=== PATIENT | female | born 1955 | race Caucasian/White ===

== ENCOUNTER 2021-03-16 12:38 | Outpatient (RCR) | payer MEDICARE, SELFPAY ==
[2021-03-16] MEDS: ACETAMINOPHEN 325 MG TABLET 650 MG PO (13:00)
[2021-03-16] MEDS: FAMOTIDINE 20 MG TABLET PO (13:00)
[2021-03-16] MEDS: diphenhydrAMINE HCl CAP 25 MG CAPSULE PO (13:00)
[2021-03-16 13:10] VITALS: BP 149/88; PULSE 71; RESP 20; TEMP 36.7; O2SAT 99
[2021-03-16 14:42] VITALS: BP 141/81
--- NOTE | 2021-03-17 14:44 | PC.NURSE ---
follow up call for covid antibody infusion. Patient feels a little better today, still nauseas but able to keep food down. Advised her to contact primary care if symptoms persist.
== END 2021-03-16 14:30 | disposition home or self-care (01) ==
LOC: AMCINF 12:38
PROVIDERS: PCP Physician Assistant Medical; Referring Provider Physician Assistant Medical; Visit Provider Internal Medicine Hematology & Oncology
DX: Z23 Encounter for immunization (principal); U07.1 COVID-19; M06.9 Rheumatoid arthritis, unspecified
CPT/HCPCS: A9270; J7050; M0243; Q0243

== ENCOUNTER 2022-04-05 11:57 | Outpatient (CLI) | payer MEDICARE, SELFPAY ==
--- NOTE | ~2022-04-05 | DEXA_ITS ---
Bone Density Report Name: CHEMA ONEAL Age: 67 Sex: Female Ethnicity: White Date of : 1955 Indication: postmenopausal; screening for osteoporosis; height loss; history of glucocorticoids; hysterectomy; rheumatoid arthritis; Referring Provider: MONIQUE RDZ Study: Bone densitometry was performed. Exam Date: April 05, 2022 Accession number: [id number] Bone Density: Region BMD T-score Z-score Classification AP Spine(L1-L4) 0.813 -2.1 -0.3 Osteopenia Femoral Neck (Left) 0.592 -2.3 -0.7 Osteopenia Total Hip (Left) 0.796 -1.2 0.1 Osteopenia Femoral Neck (Right) 0.633 -2.0 -0.4 Osteopenia Total Hip (Right) 0.762 -1.5 -0.2 Osteopenia Total Hip Mean 0.779 -1.4 -0.1 Osteopenia World Health Organization criteria for BMD impression classify patients as: Normal (T-score at or above -1.0), Osteopenia (T-score between -1.0 and -2.5), or Osteoporosis (T-score at or below -2.5). 10-year Fracture Risk: FRAX not reported because: Treated for osteoporosis Clinical Information Provided by Patient: Has taken Glucocorticoids Has rheumatoid arthritis Is being treated for osteoporosis Has used the following medications: Prolia (i.e. denosumab), Vitamin D, Calcium Has the following medical conditions: Hysterectomy, lupus, RA Patient maximum height was 65 Menopause Age: 44 No regular weight bearing exercise Onset of menses at age 15 Number of children 4 Impression: The patient has low bone mass, based on the Left Femoral Neck T-score. The patient has risk factors, including: history of glucocorticoid therapy. Discussion: It is important to ask patients whether they are taking their medications and to encourage continued and appropriate compliance with their osteoporosis therapies to reduce fracture risk. It is also important to review their risk factors and encourage appropriate calcium and vitamin D intakes, exercise, fall prevention and other lifestyle measures. Follow-Up: Consider a repeat BMD and Vertebral Fracture Assessment (VFA) exam in 2 years or sooner if medically necessary, to reassess this patient's status. Reported by: CHIDI on 04/05/2022 12:26:00 PM. Reviewed, dictated and finalized at location [facility] ESTEBAN
== END 2022-04-05 11:58 | disposition home or self-care (01) ==
LOC: ANHIMG 11:57
PROVIDERS: PCP Family Medicine; Visit Provider Family Medicine
DX: M85.88 Other specified disorders of bone density and structure, other site (principal); M85.852 Other specified disorders of bone density and structure, left thigh; M85.851 Other specified disorders of bone density and structure, right thigh
CPT/HCPCS: 77080

== ENCOUNTER 2024-08-30 14:00 | Outpatient (RCR) | payer MEDICARE, SELFPAY ==
--- NOTE | 2024-07-26 14:40 | PTOPEVAL1 ---
Assessment and note entered by Xiomara Watt, PT Evaluation Information Assessment Status Evaluation Diagnosis M25.511 pain in right shoulder ICD-10 Condition Codes (PT) Pain in right shoulder M25.511,Weakness R53.1 Onset 1 month Subjective Information Pt reports cleaning the shower -which is tall- a month ago without a step stool and over reached and felt increase pain. In the beginning the pain was constant but within the past week pain only occurs with lifting objects such as a pitcher of tea, washing hair (hands behind head). Pain has been as high as 7-8/10 and now the pain has gotten to 4/10. Pain occurs in the posterior aspect of shoulder and bicep region, when it first happened pain radiated toward elbow but only radiates to the bicep region. Reported Pain Level Pain Score 4: Self Report Assessment PT Clinical Summary Patient seen for R shoulder pain following over reaching with R arm while cleaning shower 1 month ago. Pt demonstrates R shoulder weakness, decrease shoulder flexion and external rotation ROM, possible glenohumeral dysfunction due to positive speeds test, and impaired sitting/standing posture . Pt would benefit from physical therapy to address these deficits and accomplish goals. Plan of Care Interventions Electrical Stimulation,Hot Pack/Cold Pack,Manual Therapy,Neuro Re-education,Therapeutic Activities, Therapeutic Exercise,Self-Care/Home Management PT Services Indicated Yes Treatment Frequency and 1-2x/ week for 12 visits Duration These treatments will address the objective and functional deficits as defined above. The patient will be advanced safely and appropriately in order for the patient to progress towards his/her prior level of function. Additional exercises will be introduced and as well as a comprehensive home exercise program upon discharge, if needed, ?to ensure carryover of functional gains achieved in the clinic. This treatment plan has been reviewed and agreement upon by the patient.
--- NOTE | 2024-07-26 14:41 | OPREHPOC ---
Outpatient Therapy Plan of Care This is a Multidisciplinary Plan of Care that may contain components documented by all disciplines (PT, OT, and ST.) PT Problem 1 PT Problem #1 Knowledge Deficit PT Goal 1 Goal / Goal Update Patient will be independent with HEP and diagnosis Target Visit 12 PT Problem 2 PT Problem #2 Impaired Strength PT Goal 1 Goal / Goal Update Patient will demonstrate 4+/5 on R shoulder strength Target Visit 6 PT Goal 2 Goal / Goal Update Patient will demonstrate 5/5 on R shoulder strength Target Visit 12 PT Problem 3 PT Problem #3 Impaired Range of Motion PT Goal 1 Goal / Goal Update Pt will demonstrate improved shoulder flexion and ER ROM with less then 4/10 pain and proper scapular mechanics to perform overhead, reaching and behind the back movements. Target Visit 6 PT Goal 2 Goal / Goal Update Pt will demonstrate improved R shoulder flexion and ER ROM with 0/10 pain and proper scapular mechanics to perform overhead, reaching, and behind the back movements. Target Visit 12
--- NOTE | 2024-08-30 14:27 | PTOPDC ---
Assessment and note entered by Xiomara Watt, PT Evaluation Information Assessment Status Discharge Diagnosis M25.511 pain in right shoulder ICD-10 Condition Codes (PT) Pain in right shoulder M25.511,Weakness R53.1 Onset 1 month Subjective Information Pt states she feels 100% better, feels like is back to like it was before I injured it . Pt states it has been a couple weeks since she has had pain. Has been lifting the pitcher of tea, reached up in her shower to clean and even used a hammer the other day. Was able to carry a bucket or bird seed with right hand. Reported Pain Level Pain Score 0: Self Report Assessment PT Clinical Summary Pt has attended therapy consistently for 10 visits for her right shoulder pain. She now has 0/10 pain, reports has not had pain in multiple weeks, has met all her therapy goals short term and long besides her strength goal. She has made progress in her strength, and now her RUE is equal to her LUE but did not increased to 5/5 strength. She reports feeling 100% improved overall, and she is happy with her progress. She reports understanding of continuing good posture, HEP 1x weekly, and what to do if a flare up should occur in the future. Thus patient is being discharged from therapy POC for completion of her goals. Plan of Care PT Services Indicated No
== END 2024-08-30 14:43 | disposition home or self-care (01) ==
LOC: ANHHIPT 14:00
PROVIDERS: PCP Physician Assistant Medical; Visit Provider Nurse Practitioner Family
DX: M25.511 Pain in right shoulder (principal)
CPT/HCPCS: 97014; 97110; 97112; 97140; 97161; 97530; 97750; G0283

== ENCOUNTER 2025-03-26 09:36 | Outpatient (CLI) | payer MEDICARE, SELFPAY ==
--- OUTSIDE RECORDS SUMMARY | 2023-11-15 07:45 | XMS_ITS ---
Author Organization [facility] Address [address] [place] [address] Care Team Providers Care Fibre Composite Technician Name Role Phone Michele Mahajan Primary Care Provider Jeffery Austin [phone] Colleen ELIZONDO, Chandni Unavailable Unavailable REASON FOR VISIT Back consult for RF Encounters Encounter Location Date Provider Diagnosis [facility] [address] [place] [address] 11/15/2023 Jeffery Patiño Plan Of Treatment No Information Progress Notes * Harriett ONEAL MDOB:[birth year] (69 yo F)Acc No.[id number]:11/15/2023 Patient: Marco HUNG Harriett Banda Provider: Elvin Patiño MD :1955 A ge:68 Y S ex:Female Date:11/15/2023 Address:[address] [place], [place] [id number] Pcp:Michele Mahajan Subjective: * Chief Complaints: * 1 . Back consult for RF. * Medical History: Objective: * Vitals: Assessment: Plan: * Treatment: * * Electronic signature of Natasha Patiño MD on 03/26/2025 at 11:06 AM CDT Sign off status: Pending * Provider: Elvin Patiño MD Date: 0 11/15/2023 Generated for Freemani ng/Faxing/eTransmitting on: 1 11:06 AM CDT
--- OUTSIDE RECORDS SUMMARY | 2023-11-20 03:23 | XMS_ITS ---
Author Organization [facility] Address [address] [address] Care Team Providers Care Fruit Rancher Name Role Phone Rudolph Calixto DPM Primary Care Provider Encounters Encounter Location Date Provider Diagnosis [facility] [address], [place] [address] 11/20/2023 Rudolph Calixto DPM PLAN OF TREATMENT No Information
--- OUTSIDE RECORDS SUMMARY | 2024-04-10 05:46 | XMS_ITS ---
Author Organization [facility] Address [address], [place] [address] Care Team Providers Care Manager Voice Name Role Phone Rudolph Calixto DPM Primary Care Provider REASON FOR VISIT inj Encounters Encounter Location Date Provider Diagnosis [facility] [address] [place] [address] 04/10/2024 Rudolph Calixto DPM PLAN OF TREATMENT No Information
--- NOTE | ~2025-03-26 | CT_ITS ---
EXAMINATION: CT abdomen pelvis wo/w con DATE: 03/26/2025 10:25 INDICATION: Gross hematuria TECHNIQUE: Computed tomography (CT) of the abdomen and pelvis was performed without and with 100 cc Omnipaque 350 intravenous contrast. The dose-length product was 916.02 mGy-cm. Automated exposure control and iterative reconstruction technique were employed. COMPARISON: None. FINDINGS: Lung bases unremarkable. No significant pleural or pericardial effusion. Fatty infiltration of the liver. There are 2 right renal stones measuring 3 mm or less. No hydronephrosis. Ureters are normal in course and caliber. Bladder is unremarkable. No significant vascular abnormality. Fatty inf iltration of the liver which is enlarged. Spleen, pancreas, adrenal glands adrenal glands and kidneys are otherwise unremarkable. No hydronephrosis. Nonobstructive bowel gas pattern. There are surgical changes in the anterior abdominal wall, likely related to prior hernia repair. No abnormal pelvic masses or fluid collections. There is a sclerotic lesion of the right sacrum and left ilium. Severe lower lumbar spondylosis. Grade 1 degenerative spondylolisthesis at L4-5. IMPRESSION: 1. Nonobstructing right nephrolithiasis. 2: Sclerotic lesions of the sacrum and left ilium, most likely benign bone islands in the absence of known malignancy. If there is a history of malignancy, consider metastatic disease with nuclear bone scan follow-up. Reviewed, dictated and finalized at location O. IMPRESSION: 1. Nonobstructing right nephrolithiasis. 2: Sclerotic lesions of the sacrum and left ilium, most likely benign bone isl ands in the absence of known malignancy. If there is a history of malignancy, c onsider metastatic disease with nuclear bone scan follow-up.
[2025-03-26 10:08] LABS: Estimated Glomerular Filt Rate 55
--- OUTSIDE RECORDS SUMMARY | 2025-03-26 11:05 | XMS_ITS | Clinical Summary ---
Author Organization [facility] Address [address] [place] [address] Care Team Providers Care Lace Paper Machine Operator Name Role Phone Johnathan Flores MD Unavailable Nohemy June Primary Care Provider [phone] Allergies Active Allergy Reactions Criticality Noted Date Comments Hydromorphone Nausea & Vomiting,Na usea And Vomiting,Vomiting Low 05/25/2016 Other reaction(s): Unknown Meperidine Nausea & Vomiting,Na usea And Vomiting Low 11/30/2015 Other reaction(s): Unknown Tramadol Dizziness,Nausea & Vomiting,Nausea And Vomiting Low 11/30/2015 Medications aspirin 81 mg tabletIndications :Myocardial Reinfarction Prevention Take 1 tablet (81 mg total) by mouth every morning Active predniSONE (DELTASONE) 2.5 mg tabletIndications :Systemic Lupus Erythematosus,lup us Take 2 tablets (5 mg) by mouth every morning 1 Active potassium chloride ER (KLOR-CON) 10 mEq CR tabletIndications :hypokalemia prevention Take 1 tablet/capsule (10 mEq total) by mouth every morning 9 Active levothyroxine (SYNTHROID) 25 mcg tabletIndications :hypothyroidism Take 1 tablet (25 mcg total) by mouth applications development consultant before breakfast 6 Active denosumab (PROLIA) 60 mg/mL syringeIndication s: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 Inject 1 mL (60 mg total) under the skin every 6 (six) months 9 Active cyanocobalamin (Vitamin B-12) 1,000 mcg/mL injection Inject 1 mL (1,000 mcg total) into the muscle as instructed every 4 (four) weeks 7 Active cholecalciferol (VITAMIN D-3) 2000 unit capsuleIndication s:Vitamin D Deficiency Take 1 capsule (2,000 Units total) by mouth 2 (two) times a day Active amitriptyline (ELAVIL) 10 mg tabletIndications :sleep Take 2 tablets (20 mg total) by mouth nightly Active irbesartan (AVAPRO) 75 mg tabletIndications :hypertension Take 1 tablet (75 mg total) by mouth every morning 1 Active hyoscyamine (LEVSIN) 0.125 mg tablet [address] (PROTONIX) 20 mg EC tablet Take 1 tablet (20 mg total) by mouth daily Active Lactobac no.41/Bifidobact no.7 (PROBIOTIC-10 ORAL) Take by mouth Active nitrofurantoin monohydrate (MACROBID) 100 mg capsule TAKE 1 CAPSULE BY MOUTH EVERY 12 HOURS FOR 5 DAYS - MUST ADMINISTER WITH A MEAL/FOOD 4 Active metoprolol XL (TOPROL-XL) 25 mg extended release tablet Take 0.5 tablets (12.5 mg total) by mouth daily Active etanercept (EnbreL) 50 mg/mL (1 mL) injection Inject 1 mL (50 mg total) under the skin once a week 4 Active amLODIPine (NORVASC) 5 mg tablet Take 1 tablet (5 mg total) by mouth nightly 4 Active albuterol HFA (PROVENTIL HFA,VENTOLIN HFA,PROAIR HFA) 90 mcg/actuation inhaler INHALE 2 PUFFS INTO THE LUNGS EVERY 4 HOURS NEEDED FOR WHEEZE 4 Active omega-3s/dha/epa/ fish oil/D3 (VITAMIN-D + OMEGA-3 ORAL) Dispense as written 3 Active Active Problems Problem Noted Date Diagnosed Date Lesion of pancreas 09/28/2022 Squamous blepharitis of right upper eyelid 08/11 Assessment & Plan (08/11/2020 12:18 PM PHYSICIAN GENERAL INTERNAL MEDICINE): Add hot compresses with lid scrubs to alleviate crusting of lashes and improve meibomian gland dysfunction (MGD). Recommend trail of lubricant eye drops 4 times/day. If still symptomatic,consider lid scrubs with Johnsons baby shampoo or with Ocusoft scrubs. Pseudophakia of both eyes 06/13/2018 Overview (08/03/2020): Added automatically from request for surgery [id number] 07/23/2018- Extraction Cataract - Phacoemulsification And Lens Implant - Left 07/23/2018- Extraction Cataract - Phacoemulsification And Lens Implant - Left Aim to match left eye (OS) at near. Assessment & Plan (08/11/2020 12:15 PM PHYSICIAN GENERAL INTERNAL MEDICINE): Status-post EXTRACTION CATARACT - PHACOEMULSIFICATION AND LENS IMPLANT - right eye - Right 08/03/2020 Best corrected vision is much improved and the patient is pleased with results. The eye is well-healed with no evidence of infection. Plan discontinue ocuflox and taper prednisione TID (3) x 1 week, BID (2) x 1 week , then daily x 1week, then discontinue . Call if any inflammation increases or other symptoms worsen or occur. Glasses prescription was offered/given for use as needed. The patient was instructed to contact us if any new concerns occur with this eye. Assessment & Plan (08/03/2020 12:40 PM PHYSICIAN GENERAL INTERNAL MEDICINE): Post op day 1s/p Extraction Cataract - Phacoemulsification And Lens Implant - Left 07/23/2018 No complaints; Doing well Use ofloxacin and prednisolone to operative eye QID Eye shield at bedtime, glasses or shield during the day PO instructions given RTC 1-2 weeks, earlier if any complaints or concerns Assessment & Plan (06/23/2020 12:35 PM PHYSICIAN GENERAL INTERNAL MEDICINE): 07/23/2018- Extraction Cataract - Phacoemulsification And Lens Implant - Left Implants in good position. Vision stable PCO not vis sig Assessment & Plan (11/13/2018 11:31 AM CDT): Stable. Rx given again at no-charge. May need trifocal or progressive Assessment & Plan (08/07/2018 11:11 AM PHYSICIAN GENERAL INTERNAL MEDICINE): Status-post Extraction Cataract - Phacoemulsification And Lens Implant - Left 07/23/2018 Best corrected vision is much improved and the patient is pleased with results. The eye is well-healed with no evidence of infection. Plan discontinue ocuflox and taper prednisione TID x 1 week, BID x 1 week , then (QD) x 1week, then discontinue . Call if any inflammation increases or other symptoms worsen or occur. Glasses prescription was offered/given for use as needed. The patient was instructed to contact us if any new concerns occur with this eye. Assessment & Plan (07/24/2018 9:56 AM PHYSICIAN GENERAL INTERNAL MEDICINE): Assessment: POD1 status post (s/p) phaco/iol EXTRACTION CATARACT - PHACOEMULSIFICATION AND LENS IMPLANT - Left 07/23/[address] Ceja Doing well. IOP elevated to 37mmHg today. Lowered to 26mmHg in office with topicals. Plan: Post op instructions and precautions reviewed and printed instructions given to patient. Use Ofloxacin and Prednisolone acetate 1% to operative eye QID. Add timolol 0.5% BID in surgical eye. Shield for sleep. Call with any decrease in vision or increase in pain. Glaucoma suspect, bilateral 05/30/2018 Assessment & Plan (08/11/2020 12:17 PM PHYSICIAN GENERAL INTERNAL MEDICINE): Will follow with regular special warfare boat operator for this- Dr. Ahuja. Assessment & Plan (06/23/2020 11:23 AM PHYSICIAN GENERAL INTERNAL MEDICINE): Low concern. Optic nerve cupping, but no yet concern for full glaucoma diagnosis. No need for drops yet. Testing is within normal limits. Assessment & Plan (11/13/2018 11:30 AM CDT): Low concern. Optic nerve cupping, but no yet concern for full glaucoma diagnosis. No need for drops yet. Testing is within normal limits. Assessment & Plan (08/07/2018 11:15 AM PHYSICIAN GENERAL INTERNAL MEDICINE): Noted glaucoma suspect both eyes (OU). intraocular pressure (IOP) good. Plan to discontinue timolol left eye (OS). Follow up in 3 months with baseline OCT and Ibarra visual field (HVF) both eyes (OU) and intraocular pressure (IOP) check. Assessment & Plan (06/12/2018 12:43 PM PHYSICIAN GENERAL INTERNAL MEDICINE): Very mild left eye (OS)>OD. Will monitor and reassess after cataract surgery. Note intraocular pressure (IOP) wnl. No FHx. Assessment & Plan (05/30/2018 11:09 AM PHYSICIAN GENERAL INTERNAL MEDICINE): Increased CDR, though intraocular pressure (IOP) wnl both eyes (OU).No family history -Recommend further evaluation with Aerospace Manager Vitreous syneresis, bilateral 05/30/2018 Assessment & Plan (05/30/2018 11:09 AM PHYSICIAN GENERAL INTERNAL MEDICINE): Stable, recommend observation Resolved Problems Problem Noted Date Diagnosed Date Resolved Date Combined forms of age-relate d cataract of right eye 06/12/2018 08/03/2020 Assessment & Plan (06/23/2020 12:34 PM PHYSICIAN GENERAL INTERNAL MEDICINE): Patient complains of significant symptoms and problems with activities of daily living due to visually significant disease. R/B/A of cataract surgery discussed with the patient including bleeding, infection, chronic inflammation, need for glasses and/or second surgery, loss of vision, loss of eye, and even very rarely, . Patient's questions were answered and wants to proceed with cataract extraction with intraocular lens implant. Pamphlet given and plans were made to schedule this elective surgery. Rec phaco/ intraocular lens (IOL) right eye (OD)- Aim to match left eye (OS) at near. Note more cylinder. Note interested in toric- ok with glasses Assessment & Plan (11/13/2018 11:31 AM CDT): Not visually significant. Do not recommend surgery at this time. Continue to monitor. Patient to call if problems with activities of daily living. Brochure offered/given. Assessment & Plan (08/07/2018 11:11 AM PHYSICIAN GENERAL INTERNAL MEDICINE): Not visually significant. Do not recommend surgery at this time. Continue to monitor. Patient to call if problems with activities of daily living. Brochure offered/given. Assessment & Plan (06/12/2018 12:46 PM PHYSICIAN GENERAL INTERNAL MEDICINE): Patient complains of significant symptoms and problems with activities of daily living due to visually significant disease. R/B/A of cataract surgery discussed with the patient including bleeding, infection, chronic inflammation, need for glasses and/or second surgery, loss of vision, loss of eye, and even very rarely, . Patient's questions were answered and wants to proceed with cataract extraction with intraocular lens implant. Pamphlet given and plans were made to schedule this elective surgery. Note on lupus and has taken steroids- chronic 5mg prednisone Rec phaco/IOL left eye (OS)- wants to stay near around -2.50 Posterior subcapsular age-re lated cataract of left eye 05/30/2018 06/12/2018 Assessment & Plan (05/30/2018 11:08 AM PHYSICIAN GENERAL INTERNAL MEDICINE): Symptomatic and most likely cause of her current ocular complaints. No underlying retinal etiology. Recommend cataract (CE)/IOL evaluation Surgical History Surgery Date Site/Laterality Comments CHOLECYSTECTOMY 06/05/2014 - 06/04/2015 BLADDER SUSPENSION 06/05/2014 - 06/04/2015 SECTION x4 HYSTERECTOMY 06/05/1998 - 06/04/1999 BREAST BIOPSY x4 REPLACEMENT TOTAL KNEE 06/05/2004 - 06/04/2005 Right REPLACEMENT TOTAL KNEE 06/05/2006 - 06/04/2007 Left MICRODISCECTOMY LUMBAR 06/05/2006 - 06/04/2007 COLON SURGERY 01/04/2020 - 02/03/2020 CATARACT EXTRACTION 06/05/2018 - 06/04/2019 Left Medical History Medical History Date Comments Thyroid disease Hypertension PONV (postoperative nausea and vomiting) GERD (gastroesophageal reflux disease) Hypothyroidism Depression Cataract Family History Medical History Relation Name Comments Cancer Brother Anesthesia problems Daughter PONV Cancer Father Heart disease Father Diabetes Mother Heart attack Mother Hypertension Mother Relation Name Status Comments Brother Daughter Father Mother Social History Tobacco Use Types Packs/Day Years Used Date Smoking Tobacco: Never Passive Smoke Exposure: Past Smokeless Tobacco: Never Tobacco Cessation:Counseling Given: Not Answered Alcohol Use Standard Drinks/Week Comments No 0 (1 standard drink = 0.6 oz pur e alcohol) AUDIT-C Answer Date Recorded Q1: How often do you have a drink containing alcohol? Never 01/06/2023 Q2: How many drinks containi ng alcohol do you have on a typical day when you are drinking? Patient does not drink Q3: How often do you have si x or more drinks on one occasion? Never 01/06/2023 Personal Safety Answer Date Recorded Have you ever been in or are you currently in a harmful physical or emotional relationship or is someone making you feel afraid or unsafe? Denies 01/06/2023 Comments No Sex and Gender Information Value Date Recorded Sex Assigned at Not on file Legal Sex Female 1:55 AM PHYSICIAN GENERAL INTERNAL MEDICINE Gender Identity Not on file Sexual Orientation Not on file Obstetrics History Last Filed Vital Signs Vital Sign Reading Time Taken Comments Blood Pressure 149/81 11/15/2024 3:28 PM CDT Pulse 64 11/15/2024 3:28 PM CDT Temperature 36.4 C (97.6 F) 11/15/2024 3:28 PM CDT Respiratory Rate 18 11/15/2024 3:28 PM CDT Oxygen Saturation 97% 11/15/2024 3:28 PM CDT Inhaled Oxygen Concentration - - Weight 68.1 kg (150 lb 2.1 oz) 11/15/2024 3:28 P M CDT Height 160.7 cm (5' 3.27) 11/15/2024 3:28 PM CD T Body Mass Index 26.37 11/15/2024 3:28 PM CDT Plan of Treatment Health Maintenance Due Date Last Done Comments Depression Screening 1955 Hepatitis C Screening 1955 DTaP/Tdap/Td Vaccine (1 - Tdap) 1967 Hepatitis B Screening 1974 Pneumococcal vaccine 65+ (1 of 1 - PCV) 2006 Zoster Vaccine (1 of 2) 2006 Covid-19 Vaccine (2 - Pfizer risk series) 08/27/2020 08/06/2020 Well Visit 65+ 2021 Fall Risk Assessment 01/07/2024 01/06/2023 Influenza Vaccine (#1) 2025 Breast Cancer Screening-Mammogram 10/11/2025 10/11/2024, 10/11/2024, 10/11/2023, Additional history exists Osteoporosis Screening-Bone Density Scan 06/20/2026 06/20/2024, 08/20/2020 Colon Cancer Screening-Colonoscopy 01/06/2033 01/06/2023 Colon Cancer Screening-CT Colonography Discontinued 01/06/2023 Colon Cancer Screening-DNA Stool Discontinued 01/07/20 Colon Cancer Screening-FIT Discontinued 01/06/2023 Colon Cancer Screening-Sigmoidoscopy Discontinued 01/06/2023 Medical Devices Implanted Type Area Controller Mechanic Device Identifier Shelf Expiration Date Model / Serial / Lot Bilateral Knee Replacements Endoprosthesis Bilatera l: Knee Implantable Loop Recorder-2023 Implanted:10/05 (Quantity not on file) Implantable Loop Recorder [employer] LNQ II / [id number] / [employer] Au00t0.205 Acrysof Iq Stableforce Ultrasert Tensionglide 6mm 13mm Aspheric - [id number] - [id number] Implanted:Qty: 1 on 07/23/2018 by Stacy Ceja MD at [facility] Lens Left: Eye [employer] [id number] 08/02/2020 AU00T0. 205 / [id number] / 0 [employer] Au00t0.220 Acrysof Iq Stableforce Ultrasert Tensionglide 6mm 13mm Aspheric - [id number] - [id number] Implanted:Qty: 1 on 08/03/2020 by Stacy Ceja MD at [facility] Lens Right: Eye [employer] [id number] 01/23/2023 AU00T0. 220 / [id number] / Clip From Breast Bx Breast Procedures Procedure Name Priority Date/Time Associated Diagnosis Comments COLONOSCOPY 01/06/2023 1:11 PM CDT from Last 3 Months or Most Recently Relevant to Health Maintenance Results * COLONOSCOPY (01/06/2023 1:11 PM CDT) Anatomical Region Laterality Modality Other Narrative Procedure Note Surekha Moore MD - 01/06/2023 1:[address] [facility] END[facility] Patient Name: Harriett Melchor Procedure Date: 01/06/2023 1:11 PM Date of : 1955 Admit Type: Outpatient Age: 67 Gender: Female Attending MD: Surekha Moore M.D. Room: [facility] ENDOSCOPY ROOM 06 Note Status: Finalized Procedure: Colonoscopy Indications: Lower abdominal pain Referring MD: Providers: Surekha Moore M.D. Medicines: See the Anesthesia note for documentation of the administered medications Complications: No immediate complications. Estimated Blood Loss: Estimated blood loss: none. Procedure: The benefits, risks and alternatives of theprocedure and sedation were discussed and informed consentwas obtained. All questions were answered. Please referto the signed informed consent document in the medical record. The scope was passed under direct vision.The [id number]-H180AL colonoscope was introduced through theanus and advanced to the cecum, identified byappendiceal orifice and ileocecal valve. The colonoscopy was performed without difficulty. The patient tolerated the procedure well. The quality of the bowel preparation was good. The ileocecal valve,appendiceal orifice, and rectum were photographed. Findings: The perianal and digital rectal examinations were normal. Pertinent negatives include normal sphincter tone. A few small-mouthed diverticula were found in the left colon. The retroflexed view of the distal rectum and anal verge was normaland showed no anal or rectal abnormalities. Impression: - Diverticulosis in the left colon. - The distal rectum and anal verge are normal on retroflexion view. - No specimens collected. Recommendation: - Resume previous diet. - Continue present medications. Surekha Moore M.D. Surekha Moore M.D. 01/06/2023 3:06:04 PM . Number of Addenda: 0 Note Initiated On: 01/06/2023 1:11 PM Recognized by the [employer] for promoting quality in endoscopy Surekha Moore MD ENDOSCOPY PROCEDURES Rere l Result from Last 3 Months or Most Recently Relevant to Health Maintenance Insurance HU[employer]NA CHOICE MEDICARE PPO AETNA MEDICARE HU[employer]NA CHOICE MEDICARE PPO HU[employer] CHOICE MEDICARE PPO Care Teams Lace Paper Machine Operator Relationship Specialty Start Date End Date Nohemy June PA [address] [place] [address] PCP - General Family Practice 11/07/24 Johnathan Flores MD General Surgery 09/06/22
--- OUTSIDE RECORDS SUMMARY | 2025-03-26 11:05 | XMS_ITS | Clinical Summary ---
Author Organization [facility] Address [address] eHdrick: [place] [address] Care Team Providers Care Building Construction Foreman Name Role Phone Unavailable Primary Care Provider Unavailabl e Social History Tobacco Use Types Packs/Day Years Used Date Smoking Tobacco: Never Assessed Comments Unknown Sex and Gender Information Value Date Recorded Sex Assigned at Not on file Legal Sex Female 2:42 AM MISSION ANALYST Gender Identity Not on file Sexual Orientation Not on file Plan of Treatment Health Maintenance Due Date Last Done Comments DTAP/TDAP/TD VACCINES (1 - Tdap) 1975 BREAST CANCER SCREENING 1996 COLORECTAL SCREENING 2001 Colorectal Cancer Screening 2001 FIT-DNA Q 3 years 2001 FIT/FOBT Q 1 year 2001 Flex Sig/CT Colonography Q 5 years 2001 PNEUMOCOCCAL VACCINE 50+ YEARS (1 of 1 - PCV) 03/28/20 06 ZOSTER VACCINE (1 of 2) 2006 OSTEOPOROSIS SCREENING 2021 INFLUENZA VACCINE (#1) 2025 RSV VACCINE (60+ or ) (1 - 1-dose 75+ series) 2031
--- OUTSIDE RECORDS SUMMARY | 2025-03-26 11:05 | XMS_ITS | Encounter Summary ---
Author Organization [facility] Address 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
--- OUTSIDE RECORDS SUMMARY | 2025-03-26 11:06 | XMS_ITS | Encounter Summary ---
Author Organization [facility] Address 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
--- OUTSIDE RECORDS SUMMARY | 2025-03-26 11:06 | XMS_ITS | Patient Health Record ---
Author Organization [facility] Address [address] [place] [address] Care Team Providers Care Packer Operator Automatic Name Role Phone Michele Mahajan Primary Care Provider Jeffery Austin Unavailable [phone] Chandni Macias MD Unavailable Unavailable Allergies Allergen (clinical drug ingredient) Drug/Non Drug Allergy documented on EMR Reaction Allergy Type Onset Date Status Vitram (uncoded) Unknown Allergy Act augie meperidine Demerol Unknown Drug Allergy Active Reason For Referral No Information Medications Medication SIG (Take, Route, Fr equency, Duration) Notes Start Date End Date Status Singulair Acute Active State Active Metoprolol Succinate Active Elavil Acute Active State Active Daypro Acute Active State Active Potassium Acute Active State Active Lasix Acute Active State Active Social History Tobacco Use: Social History Observation Description Date Details (start date - stop date) Never Smoker NA - NA Tobacco Use/Smoking Question Answer Notes Are you a nonsmoker Alcohol Screen (Audit-C) Question Answer Notes Did you have a drink containing alcohol in the p ast year? No Points 0 Interpretation Negative Problems Problem Type SNOMED Code ICD Code Onset Dates Problem Status W/U Status Risk Notes Problem Fear of medical treatment (408956510) Fear of injections and transfusions (F40.231) Active confirmed Problem Lumbosacral spondylosis without myelopathy (86582750) Spondylosis without myelopathy or radiculopathy, lumbar region (M47.816) Active confirmed Problem Lumbosacral spondylosis without myelopathy (67550842) Spondylosis without myelopathy or radiculopathy, lumbosacral region (M47.817) Active confirmed Plan Of Treatment No Information Insurance Providers Payer Name Payer Address Payer Phone Subscriber Number Group Number Insured Name Patient Relationship to Insured Coverage Start Date Coverage End Date HUMANA MEDICARE PLAN [address] [address] [place] [address] [phone] [id number] Harriett Melchor Self - patient is the insured Medical (General) History Medical History History ICD Code high blood pressure thyroid disease Lupus urinary incontinence bladder infections Surgical History Surgery Date(Month/Year) c sections partial hysterectomy right breast biopy left knee replacement bladder sling gallbladers left eye
--- OUTSIDE RECORDS SUMMARY | 2025-03-26 11:06 | XMS_ITS | Patient Health Record ---
Author Organization [facility] Address [address] [address] Care Team Providers Care Computer Education Professor Name Role Phone Rudolph Calixto DPM Primary Care Provider [phone] ALLERGIES Allergen (clinical drug ingredient) Drug/Non Drug Allergy documented on EMR Reaction Allergy Type Onset Date Status morphine Morphine Unknown Drug Allergy Active tramadol Tramadol Unknown Drug Allergy Active hydromorphone Dilaudid Unknown Drug Allergy Act augie meperidine Demerol Unknown Drug Allergy Active RESULTS Component Value Reference Range Notes injection under fluoroscopy (Not yet reviewed by provider) Interpretation: Performing Lab: Notes/Report: REASON FOR REFERRAL No Information MEDICATIONS Medication SIG (Take, Route, Frequency, Duration) Notes Start Date End Date Status Metoprolol Succinate ER 25 MG Oral for 90 Days Active predniSONE 2.5 MG Oral for 90 Days Active Potassium 05/22/2023 Active Levothyroxine Sodium 05/22/2023 Active Hyoscyamine Active Align Active Calcium + D Active Vitamin D Active Pantoprazole Sodium 20 MG Oral for 90 Days Active Amitriptyline HCl 10 MG Oral for 30 Days Active Aspirin 81 05/22/2023 Active Humira Active Prolia Active Vitamin B12 Active SOCIAL HISTORY Tobacco Use: Social History Observation Description Date Details (start date - stop date) Never Smoker NA - NA Sex Assigned At : Social History Observation Description Sex Assigned At Unknown Tobacco Use: Question Answer Notes Patient is a: nonsmoker Alcohol screening: Question Answer Notes Did you have a drink containing alcohol in the p ast year? No Points 0 Interpretation Negative PROBLEMS Problem Type ICD Code Onset Dates Problem Status W/U Status Risk SNOMED Code Notes Problem Hallux rigidus, right foot (M20.21) Active confirmed [id number] Encounters Encounter Location Date Provider Diagnosis [facility] [address] [place] [address] 04/10/2024 Rudolph Calixto DPM PLAN OF TREATMENT Pending Test Test Name Order Date injection under fluoroscopy 11/20/2023 injection under fluoroscopy 04/11/2024 Insurance Providers Payer Name Payer Address Payer Phone Subscriber Number Group Number Insured Name Patient Relationship to Insured Coverage Start Date Coverage End Date [employer] Health Plan [address] [address] [place] [address] [id number] Harriett Melchor Self - patient is the insured MEDICAL (GENERAL) HISTORY Medical History History ICD Code high blood pressure rheumatoid arthritis Hypothyroidism osteopenia heart disease Surgical History Surgery Date(Month/Year) colon surgery cataract removal gallbladder 2015 Bladder Sling 2014 lumbar fusion 2007 right knee replacement 2004 left knee replacement 2006 breast biopsy hysterectomy section
--- OUTSIDE RECORDS SUMMARY | 2025-03-26 11:06 | XMS_ITS | Encounter Summary ---
Author Organization [facility] Address 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
--- OUTSIDE RECORDS SUMMARY | 2025-03-26 11:06 | XMS_ITS | Clinical Summary ---
Author Organization [facility] Address [address] [place] [address] Care Team Providers Care Director Of Quality Control Name Role Phone Unavailable Primary Care Provider Unavailabl e Source Comments [facility],non-owned Affiliates and Associated Physician Practices is amultiple site organization consisting of ambulatory clinics and hospital sitesin [place], [place], [place] and [place]. This disclosure is being madepursuant to the Care Everywhere program and may not contain all information available regarding this patient. Last updated 18.[facility] Allergies Active Allergy Reactions Criticality Noted Date Comments Meperidine 02/23/2015 Hydromorphone 05/25/2016 Tramadol 02/23/2015 Medications * Be aware that medications may not be up to date on this document. Alwaysverify current medications with the patient. levothyroxine (Synthroid) 25 MCG tablet Take 1 (one) tablet by mouth daily before breakfast Active predniSONE (Deltasone) 2.5 MG tablet Take 1 (one) tablet by mouth once daily Active amitriptyline (Elavil) 10 MG tablet Take 2 (two) tablets by mouth at bedtime Active potassium chloride ER (Klor-Con M) 10 MEQ tablet Take 1 (one) tablet by mouth once daily Active aspirin (Aspirin) 81 MG chew tablet Take 1 (one) tablet by mouth once daily 4 Active metoprolol succinate XL 24hr (Toprol XL) 25 MG tablet Take 0.5 (one-half) tablet by mouth once daily 4 Active pantoprazole (Protonix) 40 MG packet Take 1 (one) packet by mouth once daily 4 Active Active Problems Problem Noted Date Diagnosed Date Other postoperative complication of subcutaneous tissue 12/19/2023 Abdominal wall fluid collections 12/19/2023 Sjogren's syndrome 05/25/2016 Atypical chest pain 05/25/2016 Chronic fatigue 05/25/2016 Family History Medical History Relation Name Comments Kidney Disease Father Lung Cancer Father Diabetes Mother Hypertension Mother Stroke Mother Relation Name Status Comments Father Alive Mother Alive Social History Tobacco Use Types Packs/Day Years Used Date Smoking Tobacco: Never Smokeless Tobacco: Never Alcohol Use Standard Drinks/Week Comments No 0 (1 standard drink = 0.6 oz pur e alcohol) Comments No Sex and Gender Information Value Date Recorded Sex Assigned at Not on file Legal Sex Female 4:09 PM CDT Gender Identity Not on file Sexual Orientation Not on file Last Filed Vital Signs Vital Sign Reading Time Taken Comments Blood Pressure 107/74 12/22/2023 11:46 AM CDT Pulse 66 12/22/2023 11:46 AM CDT Temperature 36.7 C (98.1 F) 12/22/2023 11:46 AM CDT Respiratory Rate 18 12/22/2023 3:47 AM CDT Oxygen Saturation 92% 12/22/2023 11:46 AM CDT Inhaled Oxygen Concentration - - Weight 70.3 kg (155 lb) 12/19/2023 12:12 PM CDT Height 162.6 cm (5' 4) 12/19/2023 12:12 PM CDT Body Mass Index 26.61 12/19/2023 12:12 PM CDT Plan of Treatment Health Maintenance Due Date Last Done Comments COLOGUARD (AGES 45-75) - COLON CA SCREENING 1956 CT COLONOGRAPHY - COLON CA SCREENING 1956 FIT - COLON CA SCREENING 1956 FLEX SIG - COLON CA SCREENING 1956 HEPATITIS C SCREENING 03/24/1974 DTAP/TDAP/TD VACCINES (1 - Tdap) 1975 PNEUMOCOCCAL VACCINE 50+ (1 of 1 - PCV) 2006 ZOSTER VACCINE (1 of 2) 2006 DEPRESSION SCREENING 06/05/2024 MEDICARE AWV CALENDAR YEAR 2024 COVID-19 VACCINE ( season) 2025 04/20/2022, 08/06/2020 INFLUENZA VACCINE (#1) 2025 MAMMOGRAM 10/10/2025 10/11/2023, 0501/2024, 10/11/2023, Additional history exists LIPID TESTING 07/27/2028 07/27/2023 Respiratory Syncytial Virus (RSV) Vaccine Pt: or over 60 yrs (1 - 1-dose 75+ series) 2031 COLON MONITORING 01/06/2033 01/06/2023 COLONOSCOPY - COLON CA SCREENING 01/06/2033 01/06/2023 Colorectal Cancer Screening 01/06/2033 BONE DENSITY TESTING Completed 08/20/2020 HEPATITIS B VACCINE Aged Out No longe r eligible based on patient's age to complete this topic HIB VACCINE Aged Out No longer eligi ble based on patient's age to complete this topic HPV VACCINE Aged Out No longer eligi ble based on patient's age to complete this topic MENINGOCOCCAL (Group B) VACCINE SHARED DECISION-MAKING Aged Out No longer eligible based on patient's age to complete this topic MENINGOCOCCAL GROUPS A/C/Y/W VACCINE Aged Out No longer eligible based on patient's age to complete this topic Additional Health Concerns Infection Onset Date Last Indicated ESBL Hx Comment:Added from external infection. Source: [facility]. 10/03/2019 Insurance AETNA AETNA MEDICARE [employer] MEDICARE ADV HMO & PPO Advance Directives * Full Code (Latest Code Status on File) Date Activated Date Inactivated Comments 12/19/2023 11:31 AM 12/22/2023 2:44 PM
--- OUTSIDE RECORDS SUMMARY | 2025-03-26 11:06 | XMS_ITS | Encounter Summary ---
Author Organization [facility] Address 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
--- OUTSIDE RECORDS SUMMARY | 2025-03-26 11:06 | XMS_ITS | Encounter Summary ---
Author Organization [facility] Address 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
== END 2025-03-26 09:37 | disposition home or self-care (01) ==
PROVIDERS: PCP Physician Assistant Medical; Visit Provider Physician Assistant
DX: R31.0 Gross hematuria (principal); N20.0 Calculus of kidney
CPT/HCPCS: 74178; Q9967